=== PATIENT | female | born 1990 | race Hispanic/Latino ===

== ENCOUNTER 2018-02-24 22:20 | Inpatient (IN) | payer OTHER ==
--- NOTE | 2018-02-24 22:42 | ED PDOC ---
"HPI: Abdomen Time Seen by Provider: 02/24/18 22:41 Chief Complaint (Nursing): Abdominal Pain Chief Complaint (Provider): abd pain History Per: Patient Additional Complaint(s): 27-year-old female with no past medical history presents with severe abdominal pain that started earlier today. Patient states on Tuesday she developed slight stomach upset and vomited times one. Over the past 2 days she has noticed both constipation and watery, nonbloody diarrhea. 2 hours prior to arrival patient developed acute pain to abdomen prompting ED visit. She states her abdomen feels distended. Patient took Gas-X at home but this did not help so she came to ED. She rates abdominal pain as a 10/10 upon arrival. She denies nausea at this time, denies fever or chills. Past Medical History Reviewed: Historical Data, Nursing Documentation, Vital Signs Vital Signs: Last Vital Signs Temp 98.1 F 02/24/18 22:35 Pulse 88 02/25/18 04:46 Resp 16 02/25/18 04:46 BP 138/86 02/25/18 04:46 Pulse Ox 100 02/25/18 05:18 - Medical History PMH: No Chronic Diseases - Surgical History Surgical History: No Surg Hx - Family History Family History: States: No Known Family Hx - Living Arrangements Living Arrangements: With Friends/Others - Social History Current smoker - smoking cessation education provided: No Alcohol: Occasional Drugs: Denies - Home Medications Home Medications: Ambulatory Orders Medication Instructions Recorded No Known Home Med 02/25/18 - Allergies Allergies/Adverse Reactions: Allergies Allergy/AdvReac Type Severity Reaction Status Date / Time No Known Allergies Allergy Verified 06/15/16 15:56 Review of Systems ROS Statement: Except As Marked, All Systems Reviewed And Found Negative Constitutional: Negative for: Fever, Chills Cardiovascular: Negative for: Chest Pain Respiratory: Negative for: Cough, Shortness of Breath Gastrointestinal: Positive for: Abdominal Pain, Diarrhea, Constipation. Negative for: Nausea, Vomiting, Melena, Hematochezia, Hematemesis, Rectal Pain Genitourinary Female: Negative for: Dysuria, Vaginal Discharge, Vaginal Bleeding Physical Exam - Reviewed Nursing Documentation Reviewed: Yes Vital Signs Reviewed: Yes - Physical Exam Appears: Positive for: Well, Non-toxic, No Acute Distress Skin: Negative for: Rash Eye Exam: Positive for: Normal appearance Cardiovascular/Chest: Positive for: Regular Rate, Rhythm Respiratory: Positive for: Normal Breath Sounds Gastrointestinal/Abdominal: Positive for: Tenderness (Distention with diffuse abdominal tenderness and guarding) Back: Negative for: L CVA Tenderness, R CVA Tenderness Extremity: Positive for: Normal ROM Neurologic/Psych: Positive for: Alert, Oriented - Laboratory Results Result Diagrams: 02/24/18 23:45 02/24/18 23:45 Urine POC: Negative Urine dip results: Positive for: Blood (small). Negative for: Leukocyte Esterase, Nitrate, Ketones, Glucose, Bilirubin, Protein - ECG O2 Sat by Pulse Oximetry: 100 Pulse Ox Interpretation: Normal - Other Rad CT abd and pelvis with IV and oral contrast X-Ray: Read By Radiologist X-Ray Interpretation: see below Obstructive series X-Ray Interpretation: (+) air fluid levels Medical Decision Making Medical Decision Makin27 year old with severe diffuse abd pain Plan: Urine test Urine dip CBC CMP Lipase CT abd and pelvis with IV and oral contrast IVF IV reglan IV morphine Patient vomited a significant amount of undigested food while in ED right after reglan dose was given. 4 mg IV zofran ordered. Obstructive series shows air-fluid levels consistent with small bowel obstruction. resident in diagnostic radiology, Dr. Rey came to bedside to see patient and he inserted NG tube. Patient admitted to hospitalist service, Dr. Jacob. resident in diagnostic radiology discussed case with Surgery attending medical economics consultant, Dr. Dockery. K is low, IV K ordered by Dr. Rey. CT: FINDINGS: Lung bases: Unremarkable. No mass. No consolidation. ABDOMEN: Liver: Unremarkable. No mass. Gallbladder and bile ducts: Unremarkable. No calcified stones. No ductal dilation. Pancreas: Unremarkable. No mass. No ductal dilation. Spleen: Unremarkable. No splenomegaly. Adrenals: Unremarkable. No mass. Kidneys and ureters: Unremarkable. No solid mass. No hydronephrosis. Stomach and bowel: There is marked diffuse gas filled distention of the mid to distal small bowel and large bowel. The large bowel is dilated up to 8 cm in the cecum. No distal large bowel stricture or mass. There is no wall thickening or pericolonic stranding to suggest colitis. Appendix: No findings to suggest acute appendicitis. Normal appendix. PELVIS: Bladder: Unremarkable. No mass. Reproductive: Unremarkable as visualized. DESI NIÑO | Final Radiology Report CONFIDENTIALITY STATEMENT This report is intended only for use by the referring physician, and only in accordance with law. If you received this in error, call [phone]. Page 2 of 2 ABDOMEN and PELVIS: Intraperitoneal space: Unremarkable. No free air. No significant fluid collection. Bones/joints: No acute fracture. No dislocation. Soft tissues: Unremarkable. Vasculature: Unremarkable. No abdominal aortic aneurysm. Lymph nodes: Unremarkable. No enlarged lymph nodes. IMPRESSION: Marked diffuse gas filled distention of the small and large bowel suggesting severe ileus. No distal large bowel stricture or mass. Disposition - Clinical Impression Clinical Impression: Small bowel obstruction - Patient ED Disposition Is Patient to be Admitted: Yes - Disposition Disposition Time: 02:03 Condition: SERIOUS - Pt Status Changed To: Hospital Disposition Of: Inpatient - Admit Certification Admit to Inpatient:: After my assessment, the patient will require hospitalization for at least two midnights. This is because of the severity of symptoms shown, intensity of services needed, and/or the medical risk in this patient being treated as an outpatient. Results - Lab Results Lab Results: 02/24/18 02/24/18 23:45 23:45 WBC 5.5 D RBC 4.79 Hgb 14.4 Hct 42.4 MCV 88.4 MCH 30.0 MCHC 33.9 RDW 12.8 Plt Count 241 MPV 8.1 Neut % (Auto) 43.8 L Lymph % (Auto) 43.8 H [place] % (Auto) 9.7 Eos % (Auto) 1.7 Baso % (Auto) 1.0 Neut # (Auto) 2.4 Lymph # (Auto) 2.4 [place] # (Auto) 0.5 Eos # (Auto) 0.1 Baso # (Auto) 0.1 Sodium 143 Potassium 3.2 L Chloride 102 Carbon Dioxide 23 Anion Gap 21 H BUN 9 Creatinine 0.7 Est GFR ( Amer) > 60 Est GFR (Non-Af Amer) > 60 Random Glucose 108 H Calcium 9.4 Total Bilirubin 0.6 AST 38 H ALT 36 Alkaline Phosphatase 64 Total Protein 7.8 Albumin 4.2 Globulin 3.5 Albumin/Globulin Ratio 1.2 Lipase 75"
[2018-02-24] MEDS ORDERED: Sodium Chloride 0.9% 1,000 ML IV STA (23:16)
[2018-02-24] MEDS ORDERED: Iohexol 240 (50 ml) PO STA (23:17)
[2018-02-24 23:48] LABS: BASO # 0.1 K/uL (0.0-0.2); EOS # 0.1 K/uL (0.0-0.7); EOS % 1.7 % (0.0-4.0); HEMOGLOBIN 14.4 g/dL (12.0-16.0); LYMPH # 2.4 K/uL (1.0-4.3); LYMPH % 43.8 % (20.0-40.0); MEAN CELL VOLUME 88.4 fl (81.0-99.0); MEAN CORPUSCULAR HGB CONC 33.9 g/dL (33.0-37.0); MEAN PLATELET VOLUME 8.1 fl (7.2-11.7); MONO # 0.5 K/uL (0.0-0.8); MONO % 9.7 % (0.0-10.0); NEUT # 2.4 K/uL (1.8-7.0); NEUT % 43.8 % (50.0-75.0); NRBC % 0.1 % (0.0-0.0); RBC 4.79 Mil/uL (3.80-5.20); RED CELL DISTRIBUTION WIDTH 12.8 % (11.5-14.5); WHITE BLOOD COUNT 5.5 K/uL (4.8-10.8)
[2018-02-24 23:56] LABS: ALB/GLOB RATIO 1.2 (1.0-2.1); ALBUMIN 4.2 g/dL (3.5-5.0); ALT/SGPT 36 U/L (9-52); AST/SGOT 38 U/L (14-36); BLOOD UREA NITROGEN 9 mg/dl (7-17); CALCIUM 9.4 mg/dL (8.4-10.2); GFR AFRICAN-AMERICAN > 60; GFR NON-AFRICAN AMERICAN > 60; LIPASE 75 U/L (23-300)
--- NOTE | 2018-02-25 01:37 | CP.PCM.HP ---
History of Present Illness - History of Present Illness History of Present Illness: PMD: Viet Leone MD Chief complaint: Abdominal Pain The patient was seen and examined in the ED HPI: 27 years old female with no significant past medical hx comes with a 2 days hx constipation interchanging with diarrhea and stomach upset. Two hours prior to arriving at the ED she developed a Sharp, continuous, generalized abdominal pain, with variable severity, 10/10 on arriving to the ED. She referred that the abdomen felt distended but was not relieved with Gas X. No surgical hx Nor previous hx of obstruction.In the ED Obstructive series showed signs of Intestinal Obstruction and a NG tube was placed. PMH: Denies PSH: No surgical Hx SH: No substance abuse; Never smoked; Occasional Alcohol; Live with friends FH: States: No Known Family Hx Allergies: NKDA Medication: Reviewed Present on Admission - Present on Admission Any Indicators Present on Admission: No History of DVT/PE: No History of Uncontrolled Diabetes: No Urinary Catheter: No Decubitus Ulcer Present: No Review of Systems - Constitutional Constitutional: absent: Anorexia, Chills, Fever, Headache, Lethargy, Weakness - EENT Eyes: absent: Itchy Eyes, Photophobia, Requires Corrective Lenses, Sees Flashes Ears: absent: Decreased Hearing, Ear Discharge, Ear Pain, Tinnitus Nose/Mouth/Throat: absent: Epistaxis, Nasal Congestion, Nasal Trauma, Nose Pain , Sinus Pain, Sinus Pressure - Cardiovascular Cardiovascular: absent: Chest Pain, Dyspnea, Edema - Respiratory Respiratory: absent: Cough, Dyspnea, Wheezing, Stridor - Gastrointestinal Gastrointestinal: Abdominal Pain, Change in Bowel Habits, Constipation, Diarrhea , Nausea, Vomiting - Genitourinary Genitourinary: absent: Dysuria, Flank Pain, Hematuria, Urinary Hesitance, Voiding Freq/Small Amts - Musculoskeletal Musculoskeletal: absent: Arthralgias, Back Pain, Muscle Weakness - Integumentary Integumentary: absent: Pruritus, Rash, Skin Ulcer, Sores, Striae, Swelling - Neurological Neurological: absent: Confusion, Dizziness, Focal Weakness, Weakness - Psychiatric Psychiatric: Anxiety, Irritability. absent: Panic Attacks - Endocrine Endocrine: absent: Polydipsia, Polyphagia, Polyuria - Hematologic/Lymphatic Hematologic: absent: Easy Bleeding, Easy Bruising Past Patient History - Past Medical History & Family History Past Medical History?: No - Past Social History Smoking Status: Never Smoked Chewing Tobacco Use: No Cigar Use: No Alcohol: Occasional Drugs: Denies Home Situation {Lives}: With Family - CARDIAC Hx Cardiac Disorders: Yes Hx Heart Murmur: Yes - PULMONARY Hx Respiratory Disorders: No Hx Emphysema: No - NEUROLOGICAL Hx Neurological Disorder: No - HEENT Hx HEENT Problems: No - RENAL Hx Chronic Kidney Disease: No - ENDOCRINE/METABOLIC Hx Endocrine Disorders: No - HEMATOLOGICAL/ONCOLOGICAL Hx Blood Disorders: No - INTEGUMENTARY Hx Dermatological Problems: No - MUSCULOSKELETAL/RHEUMATOLOGICAL Hx Musculoskeletal Disorders: No - GASTROINTESTINAL Hx Constipation: Yes - GENITOURINARY/GYNECOLOGICAL Hx Genitourinary Disorders: No - PSYCHIATRIC Hx Psychophysiologic Disorder: No Hx Substance Use: No - SURGICAL HISTORY Hx Surgeries: No - ANESTHESIA Hx Anesthesia: No Meds Allergies/Adverse Reactions: Allergies Allergy/AdvReac Type Severity Reaction Status Date / Time No Known Allergies Allergy Verified 06/15/16 15:56 Physical Exam - Constitutional Appears: No Acute Distress - Head Exam Head Exam: ATRAUMATIC, NORMAL INSPECTION, NORMOCEPHALIC - Eye Exam Eye Exam: EOMI, Normal appearance, PERRL Pupil Exam: NORMAL ACCOMODATION, PERRL - ENT Exam ENT Exam: Mucous Membranes Moist, Normal Exam, Normal External Ear Exam, Normal Oropharynx - Neck Exam Neck exam: Positive for: Full Rom, Normal Inspection, Thyromegaly - Respiratory Exam Respiratory Exam: Clear to Auscultation Bilateral. absent: Rales, Rhonchi, Wheezes - Cardiovascular Exam Cardiovascular Exam: absent: +S1, +S2 - GI/Abdominal Exam Additional comments: Full, Firm, decreased bowel sounds Tympanic on percussion, Generalized tenderness, Mild guarding - Rectal Exam Rectal Exam: Deferred - Extremities Exam Extremities exam: Negative for: calf tenderness, full ROM - Back Exam Back exam: NORMAL INSPECTION. absent: CVA tenderness (L), CVA tenderness (R) - Neurological Exam Neurological exam: Alert, CN II-XII Intact, Normal Gait, Oriented x3, Reflexes Normal - Psychiatric Exam Psychiatric exam: Normal Affect, Normal Mood - Skin Skin Exam: Dry, Intact, Normal Color, Warm Results - Vital Signs Recent Vital Signs: Last Vital Signs Temp 98.1 F 02/24/18 22:35 Pulse 106 H 02/24/18 22:35 Resp 18 02/24/18 22:35 BP 154/93 H 02/24/18 22:35 Pulse Ox 100 02/25/18 01:32 - Labs Result Diagrams: 02/24/18 23:45 02/24/18 23:45 Labs: Laboratory Results - last 24 hr 02/24/18 02/24/18 23:45 23:45 WBC 5.5 D RBC 4.79 Hgb 14.4 Hct 42.4 MCV 88.4 MCH 30.0 MCHC 33.9 RDW 12.8 Plt Count 241 MPV 8.1 Neut % (Auto) 43.8 L Lymph % (Auto) 43.8 H [place] % (Auto) 9.7 Eos % (Auto) 1.7 Baso % (Auto) 1.0 Neut # (Auto) 2.4 Lymph # (Auto) 2.4 [place] # (Auto) 0.5 Eos # (Auto) 0.1 Baso # (Auto) 0.1 Sodium 143 Potassium 3.2 L Chloride 102 Carbon Dioxide 23 Anion Gap 21 H BUN 9 Creatinine 0.7 Est GFR ( Amer) > 60 Est GFR (Non-Af Amer) > 60 Random Glucose 108 H Calcium 9.4 Total Bilirubin 0.6 AST 38 H ALT 36 Alkaline Phosphatase 64 Total Protein 7.8 Albumin 4.2 Globulin 3.5 Albumin/Globulin Ratio 1.2 Lipase 75 - Imaging and Cardiology Chest x-ray Status: Image reviewed by me Additional comment: No infiltrate OBSTRUCTIVE SERIES Additional comment: Dilated loops of Small Intestine with air fluid levels Assessment & Plan - Assessment and Plan (Free Text) Assessment: #. SBO #. Abdominal Pain #: Hypokalemia Plan: 27 years old female with no significant past medical hx comes with a 2 days hx constipation interchanging with diarrhea, stomach upset with a Sharp, continuous , generalized abdominal pain, of variable severity, 10/10 on arriving to the ED. #. SBO - Consult Surgery Dr. Dockery - Follow CT abdomen/Pelvis - NPO - NG tube inserted by vice president medical affairs #. Abdominal Pain - Pain management #: Hypokalemia caused by the vomiting - Potassium repleted #. Stress ulcer prophylaxis with Pepcid #. DVT Prophylaxis with DVT #. Code Status: Full - Date & Time Date: 02/25/18 Time: 01:37
--- NOTE | 2018-02-25 01:38 | CP.PCM.CON ---
<CandidoIsatuPiter D - Last Filed: 02/25/18 01:33> History of Present Illness - History of Present Illness History of Present Illness: SURGERY CONSULT NOTE FOR DR. DOCKERY 27F presents with abdominal pain. Patient states pain started two days ago and has been slowly increasing in intensity. Pain is currently diffused, and is cyclical. She states pain is associated with nausea and vomiting. She recently vomited copious amount of undigested food in the ED. She states she has not had an appetite for the past 2 days. She has been having bowel movement but they are much smaller than usual. She states she feels like she needs to pass gas but she can not. She has never had this before. PMH: denies PSH: wisdom tooth extraction Social: denies tobacco abuse, admits social alcohol use, denies illicit drug use Allergies: NKDA Past Patient History - Past Social History Alcohol: Occasional Drugs: Denies - CARDIAC Hx Cardiac Disorders: Yes Hx Heart Murmur: Yes - PULMONARY Hx Respiratory Disorders: No - NEUROLOGICAL Hx Neurological Disorder: No - HEENT Hx HEENT Problems: No - RENAL Hx Chronic Kidney Disease: No - ENDOCRINE/METABOLIC Hx Endocrine Disorders: No - HEMATOLOGICAL/ONCOLOGICAL Hx Blood Disorders: No - INTEGUMENTARY Hx Dermatological Problems: No - MUSCULOSKELETAL/RHEUMATOLOGICAL Hx Musculoskeletal Disorders: No - GASTROINTESTINAL Hx Constipation: Yes - GENITOURINARY/GYNECOLOGICAL Hx Genitourinary Disorders: No - PSYCHIATRIC Hx Psychophysiologic Disorder: No Hx Substance Use: No - SURGICAL HISTORY Hx Surgeries: No - ANESTHESIA Hx Anesthesia: No Meds Allergies/Adverse Reactions: Allergies Allergy/AdvReac Type Severity Reaction Status Date / Time No Known Allergies Allergy Verified 06/15/16 15:56 - Medications Medications: Current Medications Hydromorphone HCl (Dilaudid) 1 mg IVP STAT STA Stop: 02/25/18 00:53 Physical Exam - Constitutional Appears: Non-toxic, No Acute Distress, Other Additional comments: uncomfortable due to pain - Respiratory Exam Respiratory Exam: Clear to Auscultation Bilateral, NORMAL BREATHING PATTERN - Cardiovascular Exam Cardiovascular Exam: REGULAR RHYTHM, +S1, +S2 - GI/Abdominal Exam GI & Abdominal Exam: Distended, Firm, Tenderness. absent: Guarding, Rebound, Rigid, Soft - Extremities Exam Extremities exam: Negative for: pedal edema, tenderness - Neurological Exam Neurological exam: Alert, Oriented x3 - Psychiatric Exam Psychiatric exam: Normal Affect, Normal Mood - Skin Skin Exam: Dry, Intact, Normal Color, Warm Results - Vital Signs Recent Vital Signs: Last Vital Signs Temp 98.1 F 02/24/18 22:35 Pulse 106 H 02/24/18 22:35 Resp 18 02/24/18 22:35 BP 154/93 H 02/24/18 22:35 Pulse Ox 100 02/25/18 01:32 - Labs Result Diagrams: 02/24/18 23:45 02/24/18 23:45 Labs: Laboratory Results - last 24 hr 02/24/18 02/24/18 23:45 23:45 WBC 5.5 D RBC 4.79 Hgb 14.4 Hct 42.4 MCV 88.4 MCH 30.0 MCHC 33.9 RDW 12.8 Plt Count 241 MPV 8.1 Neut % (Auto) 43.8 L Lymph % (Auto) 43.8 H [place] % (Auto) 9.7 Eos % (Auto) 1.7 Baso % (Auto) 1.0 Neut # (Auto) 2.4 Lymph # (Auto) 2.4 [place] # (Auto) 0.5 Eos # (Auto) 0.1 Baso # (Auto) 0.1 Sodium 143 Potassium 3.2 L Chloride 102 Carbon Dioxide 23 Anion Gap 21 H BUN 9 Creatinine 0.7 Est GFR ( Amer) > 60 Est GFR (Non-Af Amer) > 60 Random Glucose 108 H Calcium 9.4 Total Bilirubin 0.6 AST 38 H ALT 36 Alkaline Phosphatase 64 Total Protein 7.8 Albumin 4.2 Globulin 3.5 Albumin/Globulin Ratio 1.2 Lipase 75 Assessment & Plan - Assessment and Plan (Free Text) Assessment: 27F with abdominal pain likely 2/2 bowel obstruction Abd X-ray: air fluids levels Plan: NPO, IVF Pain control Nausea control NGT is placed- monitor output CT scan Abd/pelvis with contrast Further recs discuss with Dr. bayron Rey, PGY2 <Man Dockery - Last Filed: 02/25/18 15:33> History of Present Illness - History of Present Illness History of Present Illness: Patient was seen and examined at the bedside. Agree with resident's note above. States that she is passing flatus now, states that feels better and less bloated since the admission to the hospital. Meds - Medications Medications: Current Medications Acetaminophen (Tylenol 650 Mg Supp) 650 mg ME Q4 PRN PRN Reason: Pain, moderate (4-7) Last Admin: 02/25/18 08:22 Dose: 650 mg Dicyclomine HCl (Bentyl) 20 mg IM QID PRN PRN Reason: GI distress Famotidine (Pepcid) 20 mg IVP Q12 NARCISO Last Admin: 02/25/18 08:29 Dose: 20 mg Sodium Chloride (Sodium Chloride 0.9%) 1,000 mls @ 125 mls/hr IV .Q8H NARCISO Stop: 02/26/18 01:45 Last Admin: 02/25/18 13:44 Dose: 125 mls/hr Ketorolac Tromethamine (Toradol) 15 mg IVP Q6 PRN PRN Reason: Pain, severe (8-10) Last Admin: 02/25/18 13:43 Dose: 15 mg Ondansetron HCl (Zofran Inj) 4 mg IVP Q4 PRN PRN Reason: Nausea/Vomiting Last Admin: 02/25/18 04:06 Dose: 4 mg Ondansetron HCl (Zofran Odt) 4 mg PO Q8H PRN PRN Reason: Nausea/Vomiting Last Admin: 02/25/18 08:25 Dose: 4 mg Physical Exam - GI/Abdominal Exam Additional comments: soft, tender in the lower abdomen, very mildly distended, BS hypoactive, no rebound, no guarding - Rectal Exam Rectal Exam: Deferred Results - Vital Signs Recent Vital Signs: Last Vital Signs Temp 98 F 02/25/18 08:12 Pulse 84 02/25/18 08:12 Resp 18 02/25/18 08:12 BP 134/88 02/25/18 08:12 Pulse Ox 100 02/25/18 08:12 - Labs Result Diagrams: 02/25/18 07:30 02/25/18 07:30 Labs: Laboratory Results - last 24 hr 02/24/18 02/24/18 02/25/18 23:45 23:45 02:10 WBC 5.5 D RBC 4.79 Hgb 14.4 Hct 42.4 MCV 88.4 MCH 30.0 MCHC 33.9 RDW 12.8 Plt Count 241 MPV 8.1 Neut % (Auto) 43.8 L Lymph % (Auto) 43.8 H [place] % (Auto) 9.7 Eos % (Auto) 1.7 Baso % (Auto) 1.0 Neut # (Auto) 2.4 Lymph # (Auto) 2.4 [place] # (Auto) 0.5 Eos # (Auto) 0.1 Baso # (Auto) 0.1 PT 12.1 INR 1.1 APTT 27.7 Sodium 143 Potassium 3.2 L Chloride 102 Carbon Dioxide 23 Anion Gap 21 H BUN 9 Creatinine 0.7 Est GFR ( Amer) > 60 Est GFR (Non-Af Amer) > 60 Random Glucose 108 H Calcium 9.4 Total Bilirubin 0.6 AST 38 H ALT 36 Alkaline Phosphatase 64 Total Protein 7.8 Albumin 4.2 Globulin 3.5 Albumin/Globulin Ratio 1.2 Lipase 75 Urine Opiates Screen Urine Methadone Screen Ur Barbiturates Screen Ur Phencyclidine Scrn Ur Amphetamines Screen U Benzodiazepines Scrn U Oth Cocaine Metabols U Cannabinoids Screen 02/25/18 02/25/18 02/25/18 07:30 07:30 14:32 WBC 6.7 RBC 4.05 Hgb 12.2 D Hct 36.0 MCV 88.9 MCH 30.2 MCHC 33.9 RDW 12.4 Plt Count 191 MPV 8.4 Neut % (Auto) 82.4 H Lymph % (Auto) 11.4 L [place] % (Auto) 6.1 Eos % (Auto) 0.0 Baso % (Auto) 0.1 Neut # (Auto) 5.5 Lymph # (Auto) 0.8 L [place] # (Auto) 0.4 Eos # (Auto) 0.0 Baso # (Auto) 0.0 PT INR APTT Sodium 139 Potassium 3.9 Chloride 104 Carbon Dioxide 21 L Anion Gap 18 BUN 7 Creatinine 0.6 L Est GFR ( Amer) > 60 Est GFR (Non-Af Amer) > 60 Random Glucose 110 H Calcium 8.5 Total Bilirubin 0.5 AST 38 H ALT 41 Alkaline Phosphatase 53 Total Protein 6.4 Albumin 3.5 Globulin 3.0 Albumin/Globulin Ratio 1.2 Lipase Urine Opiates Screen Positive H Urine Methadone Screen Negative Ur Barbiturates Screen Negative Ur Phencyclidine Scrn Negative Ur Amphetamines Screen Negative U Benzodiazepines Scrn Negative U Oth Cocaine Metabols Negative U Cannabinoids Screen Negative - Imaging and Cardiology CT scan - abdomen Status: Image reviewed by me, Report reviewed by me Assessment & Plan - Assessment and Plan (Free Text) Assessment: 27 y.o. female with Ileus on the CT scan of abd/pelvis Plan: - Keep NPO - IV fluids - pain control - avoid narcotics - NG tube to wall suction - Out of bed and ambulate - repeat labs in am - Will follow
[2018-02-25] MEDS ORDERED: HYDROmorphone 0.5 mg/0.5 ml ISec ONE ×2 (01:52→04:43)
[2018-02-25] MEDS ORDERED: Iohexol 240 (50 ml) ONE (01:53)
[2018-02-25] MEDS: Sodium Chloride 0.9% 1,000 ML IV SCH ×4 (02:22→21:59)
[2018-02-25 02:34] LABS: INR 1.1 (0.9-1.2); PARTIAL THROMBOPLASTIN TIME 27.7 Seconds (25.6-37.1); PROTHROMBIN TIME 12.1 Seconds (9.8-13.1)
[2018-02-25] MEDS ORDERED: Potassium Chloride 20 mEq 100 ML ONE (02:44)
[2018-02-25] MEDS: Potassium Chloride 20 mEq 100 ML IVPB SCH ×2 (02:46→06:54)
[2018-02-25] MEDS ORDERED: Sodium Chloride 0.9% 100 ML ONE (03:49)
[2018-02-25] MEDS ORDERED: Iohexol 300 100 ML IJ ONE (03:49)
--- NOTE | 2018-02-25 05:19 | CT ---
EXAM: CT Abdomen and Pelvis With Intravenous Contrast CLINICAL HISTORY: 27 years old, female; Pain; Abdominal pain; Acute; Additional info: Severe abd pain, constipation TECHNIQUE: Axial computed tomography images of the abdomen and pelvis with intravenous contrast. All CT scans at this facility use one or more dose reduction techniques, viz.: automated exposure control; ma/kV adjustment per patient size (including targeted exams where dose is matched to indication; i.e. head); or iterative reconstruction technique. Coronal and sagittal reformatted images were created and reviewed. CONTRAST: 95 mL of omnipaque 300 administered intravenously. COMPARISON: No relevant prior studies available. FINDINGS: Lung bases: Unremarkable. No mass. No consolidation. ABDOMEN: Liver: Unremarkable. No mass. Gallbladder and bile ducts: Unremarkable. No calcified stones. No ductal dilation. Pancreas: Unremarkable. No mass. No ductal dilation. Spleen: Unremarkable. No splenomegaly. Adrenals: Unremarkable. No mass. Kidneys and ureters: Unremarkable. No solid mass. No hydronephrosis. Stomach and bowel: There is marked diffuse gas filled distention of the mid to distal small bowel and large bowel. The large bowel is dilated up to 8 cm in the cecum. No distal large bowel stricture or mass. There is no wall thickening or pericolonic stranding to suggest colitis. Appendix: No findings to suggest acute appendicitis. Normal appendix. PELVIS: Bladder: Unremarkable. No mass. Reproductive: Unremarkable as visualized. ABDOMEN and PELVIS: Intraperitoneal space: Unremarkable. No free air. No significant fluid collection. Bones/joints: No acute fracture. No dislocation. Soft tissues: Unremarkable. Vasculature: Unremarkable. No abdominal aortic aneurysm. Lymph nodes: Unremarkable. No enlarged lymph nodes. IMPRESSION: Marked diffuse gas filled distention of the small and large bowel suggesting severe ileus. No distal large bowel stricture or mass.
--- NOTE | 2018-02-25 09:04 | RAD ---
PROCEDURE: Radiographs of the chest and abdomen (obstructive series) HISTORY: severe abd pain COMPARISON: Chest radiograph dated 06/15/2016; no prior imaging of the abdomen. TECHNIQUE: AP radiograph of the chest, with upright and supine radiographs of the abdomen. FINDINGS: CHEST: Lungs: Clear. Cardiovascular: Normal size heart. No pulmonary vascular congestion. Pleura: No pleural fluid. No pneumothorax. Other findings: None. ABDOMEN AND PELVIS: Bowel: Gaseous distention of small and large bowel with gas seen in the rectum. Free air: None. Bones: Unremarkable. Other findings: None. IMPRESSION: Gaseous distention of small and large bowel with gas seen in the rectum suggesting ileus. No focal consolidation or pleural effusion.
[2018-02-25 09:09] LABS: BASO % 0.1 % (0.0-2.0); LYMPH # 0.8 K/uL (1.0-4.3); LYMPH % 11.4 % (20.0-40.0); MEAN CELL VOLUME 88.9 fl (81.0-99.0); MEAN CORPUSCULAR HEMOGLOBIN 30.2 pg (27.0-31.0); MEAN CORPUSCULAR HGB CONC 33.9 g/dL (33.0-37.0); MEAN PLATELET VOLUME 8.4 fl (7.2-11.7); MONO # 0.4 K/uL (0.0-0.8); MONO % 6.1 % (0.0-10.0); NEUT # 5.5 K/uL (1.8-7.0); NEUT % 82.4 % (50.0-75.0); NRBC % 0.2 % (0.0-0.0); RBC 4.05 Mil/uL (3.80-5.20); RED CELL DISTRIBUTION WIDTH 12.4 % (11.5-14.5); WHITE BLOOD COUNT 6.7 K/uL (4.8-10.8)
[2018-02-25 09:15] LABS: HEMOGLOBIN 12.2 g/dL (12.0-16.0)
[2018-02-25 09:19] LABS: ALB/GLOB RATIO 1.2 (1.0-2.1); ALBUMIN 3.5 g/dL (3.5-5.0); ALT/SGPT 41 U/L (9-52); AST/SGOT 38 U/L (14-36); BLOOD UREA NITROGEN 7 mg/dl (7-17); CALCIUM 8.5 mg/dL (8.4-10.2); GFR AFRICAN-AMERICAN > 60; GFR NON-AFRICAN AMERICAN > 60
--- NOTE | 2018-02-25 10:34 | RAD ---
PROCEDURE: Radiographs of the chest and abdomen (obstructive series) HISTORY: Follow up SBO vs Ileus COMPARISON: Chest and abdominal radiographs performed earlier the same day. TECHNIQUE: AP radiograph of the chest, with upright and supine radiographs of the abdomen. FINDINGS: CHEST: Lungs: Clear. Cardiovascular: Normal size heart. No pulmonary vascular congestion. Pleura: No pleural fluid. No pneumothorax. Other findings: New enteric tube with tip in stomach. ABDOMEN AND PELVIS: Bowel: Stable gaseous dilatation of large and small bowel. Free air: None. Bones: Unremarkable. Other findings: None. IMPRESSION: New enteric tube in satisfactory position. Stable gaseous distention of large and small bowel.
[2018-02-25 15:10] LABS: BARBITURATES, UR NEGATIVE (NEGATIVE); BENZODIAZEPINES, UR NEGATIVE (NEGATIVE); OPIATES, UR POSITIVE (NEGATIVE); PHENCYCLIDINE, UR NEGATIVE (NEGATIVE)
[2018-02-25] MEDS ORDERED: Chlorhexidine Gluconate 1 APPL/PKT TP ONE (22:36)
--- NOTE | 2018-02-26 01:42 | CP.PCM.CON ---
History of Present Illness - History of Present Illness History of Present Illness: 27 yo female with no past medical history admitted with abdominal pain and severe distention. Sx started 2 days earlier with severe constipationand increasing abdominal swelling. Had no prior surgery. Review of Systems - Constitutional Constitutional: absent: Chills - EENT Eyes: absent: Blurred Vision Ears: absent: Decreased Hearing Nose/Mouth/Throat: absent: Epistaxis - Cardiovascular Cardiovascular: absent: Chest Pain - Respiratory Respiratory: absent: Dyspnea - Gastrointestinal Gastrointestinal: As Per HPI - Genitourinary Genitourinary: absent: Change in Urinary Stream Past Patient History - Past Medical History & Family History Past Medical History?: No - Past Social History Smoking Status: Never Smoked - CARDIAC Hx Cardiac Disorders: Yes Hx Heart Murmur: Yes - PULMONARY Hx Respiratory Disorders: No Hx Emphysema: No - NEUROLOGICAL Hx Neurological Disorder: No - HEENT Hx HEENT Problems: No - RENAL Hx Chronic Kidney Disease: No - ENDOCRINE/METABOLIC Hx Endocrine Disorders: No - HEMATOLOGICAL/ONCOLOGICAL Hx Blood Disorders: No - INTEGUMENTARY Hx Dermatological Problems: No - MUSCULOSKELETAL/RHEUMATOLOGICAL Hx Musculoskeletal Disorders: No Hx Falls: No - GASTROINTESTINAL Hx Gastrointestinal Disorders: No Hx Constipation: Yes - GENITOURINARY/GYNECOLOGICAL Hx Genitourinary Disorders: No - PSYCHIATRIC Hx Psychophysiologic Disorder: No Hx Substance Use: No - SURGICAL HISTORY Hx Surgeries: No - ANESTHESIA Hx Anesthesia: No Hx Anesthesia Reactions: No Hx Malignant Hyperthermia: No Has any member of the family had a problem w/ anesthesia?: No Meds Allergies/Adverse Reactions: Allergies Allergy/AdvReac Type Severity Reaction Status Date / Time No Known Allergies Allergy Verified 06/15/16 15:56 - Medications Medications: Current Medications Acetaminophen (Tylenol 650 Mg Supp) 650 mg [place] Q4 PRN PRN Reason: Pain, moderate (4-7) Last Admin: 02/25/18 22:42 Dose: 650 mg Famotidine (Pepcid) 20 mg IVP Q12 NARCISO Last Admin: 02/25/18 21:44 Dose: 20 mg Sodium Chloride (Sodium Chloride 0.9%) 1,000 mls @ 125 mls/hr IV .Q8H NARCISO Stop: 02/26/18 01:45 Last Admin: 02/25/18 21:59 Dose: 125 mls/hr Ketorolac Tromethamine (Toradol) 15 mg IVP Q6 PRN PRN Reason: Pain, severe (8-10) Last Admin: 02/25/18 13:43 Dose: 15 mg Ondansetron HCl (Zofran Inj) 4 mg IVP Q4 PRN PRN Reason: Nausea/Vomiting Last Admin: 02/25/18 04:06 Dose: 4 mg Ondansetron HCl (Zofran Odt) 4 mg PO Q8H PRN PRN Reason: Nausea/Vomiting Last Admin: 02/25/18 08:25 Dose: 4 mg Physical Exam - Constitutional Appears: No Acute Distress - Head Exam Head Exam: NORMAL INSPECTION - Eye Exam Eye Exam: Normal appearance - ENT Exam ENT Exam: Mucous Membranes Moist - Neck Exam Neck exam: Positive for: Normal Inspection - Respiratory Exam Respiratory Exam: Clear to Auscultation Bilateral - Cardiovascular Exam Cardiovascular Exam: REGULAR RHYTHM, +S1, +S2 - GI/Abdominal Exam GI & Abdominal Exam: Distended, Hypoactive Bowel Sounds, Tenderness Additional comments: moderately distended with NG tube in place . Generalized tenderness. Rectal exam was negative , no stool present Results - Vital Signs Recent Vital Signs: Last Vital Signs Temp 97.7 F 02/26/18 00:05 Pulse 66 02/26/18 00:05 Resp 18 02/26/18 00:05 BP 122/79 02/26/18 00:05 Pulse Ox 98 02/26/18 00:05 - Labs Result Diagrams: 02/25/18 07:30 02/25/18 07:30 Labs: Laboratory Results - last 24 hr 02/25/18 02/25/18 02/25/18 02:10 07:30 07:30 WBC 6.7 RBC 4.05 Hgb 12.2 D Hct 36.0 MCV 88.9 MCH 30.2 MCHC 33.9 RDW 12.4 Plt Count 191 MPV 8.4 Neut % (Auto) 82.4 H Lymph % (Auto) 11.4 L [place] % (Auto) 6.1 Eos % (Auto) 0.0 Baso % (Auto) 0.1 Neut # (Auto) 5.5 Lymph # (Auto) 0.8 L [place] # (Auto) 0.4 Eos # (Auto) 0.0 Baso # (Auto) 0.0 PT 12.1 INR 1.1 APTT 27.7 Sodium 139 Potassium 3.9 Chloride 104 Carbon Dioxide 21 L Anion Gap 18 BUN 7 Creatinine 0.6 L Est GFR ( Amer) > 60 Est GFR (Non-Af Amer) > 60 Random Glucose 110 H Calcium 8.5 Total Bilirubin 0.5 AST 38 H ALT 41 Alkaline Phosphatase 53 Total Protein 6.4 Albumin 3.5 Globulin 3.0 Albumin/Globulin Ratio 1.2 Urine Opiates Screen Urine Methadone Screen Ur Barbiturates Screen Ur Phencyclidine Scrn Ur Amphetamines Screen U Benzodiazepines Scrn U Oth Cocaine Metabols U Cannabinoids Screen 02/25/18 14:32 WBC RBC Hgb Hct MCV MCH MCHC RDW Plt Count MPV Neut % (Auto) Lymph % (Auto) [place] % (Auto) Eos % (Auto) Baso % (Auto) Neut # (Auto) Lymph # (Auto) [place] # (Auto) Eos # (Auto) Baso # (Auto) PT INR APTT Sodium Potassium Chloride Carbon Dioxide Anion Gap BUN Creatinine Est GFR ( Amer) Est GFR (Non-Af Amer) Random Glucose Calcium Total Bilirubin AST ALT Alkaline Phosphatase Total Protein Albumin Globulin Albumin/Globulin Ratio Urine Opiates Screen Positive H Urine Methadone Screen Negative Ur Barbiturates Screen Negative Ur Phencyclidine Scrn Negative Ur Amphetamines Screen Negative U Benzodiazepines Scrn Negative U Oth Cocaine Metabols Negative U Cannabinoids Screen Negative - Imaging and Cardiology CT scan - abdomen Status: Report reviewed by me Additional comment: Accession No. : [id number] Patient Name / ID : SALINAS WEEKS E / [id number] Exam Date : 02/25/2018 03:56:23 ( Approved ) Study Comment : Sex / Age : F / 27Y Creator : JULIANE MARIO Dictator : Dough Panner : Auto Painter : JULIANE MARIO Approver2 : Report Date : 02/25/2018 05:19:00 My Comment : [facility] Division of Radiology [address] [place] [address] Tel. no. Patient Name: DESI NIÑO Pt. Address: [address] [place] [address] Rec #: [id number] [place] [address]: Milena WHITNEY, Beena Pt Order Location: [facility] : 1990 Female Age: 27 Order #: [id number] Reason for exam: severe abd pain, constipation CT Scan ABD PELVIS PO IV CONTRAST Exam Date: 02/24/18 This imaging exam was performed at [facility] EXAM: CT Abdomen and Pelvis With Intravenous Contrast CLINICAL HISTORY: 27 years old, female; Pain; Abdominal pain; Acute; Additional info: Severe abd pain, constipation TECHNIQUE: Axial computed tomography images of the abdomen and pelvis with intravenous contrast. All CT scans at this facility use one or more dose reduction techniques, viz.: automated exposure control; ma/kV adjustment per patient size (including targeted exams where dose is matched to indication; i.e. head); or iterative reconstruction technique. Coronal and sagittal reformatted images were created and reviewed. CONTRAST: 95 mL of omnipaque 300 administered intravenously. COMPARISON: No relevant prior studies available. FINDINGS: Lung bases: Unremarkable. No mass. No consolidation. ABDOMEN: Liver: Unremarkable. No mass. Gallbladder and bile ducts: Unremarkable. No calcified stones. No ductal dilation. Pancreas: Unremarkable. No mass. No ductal dilation. Spleen: Unremarkable. No splenomegaly. Adrenals: Unremarkable. No mass. Kidneys and ureters: Unremarkable. No solid mass. No hydronephrosis. Stomach and bowel: There is marked diffuse gas filled distention of the mid to distal small bowel and large bowel. The large bowel is dilated up to 8 cm in the cecum. No distal large bowel stricture or mass. There is no wall thickening or pericolonic stranding to suggest colitis. Appendix: No findings to suggest acute appendicitis. Normal appendix. PELVIS: Bladder: Unremarkable. No mass. Reproductive: Unremarkable as visualized. ABDOMEN and PELVIS: Intraperitoneal space: Unremarkable. No free air. No significant fluid collection. Bones/joints: No acute fracture. No dislocation. Soft tissues: Unremarkable. Vasculature: Unremarkable. No abdominal aortic aneurysm. Lymph nodes: Unremarkable. No enlarged lymph nodes. IMPRESSION: Marked diffuse gas filled distention of the small and large bowel suggesting severe ileus. No distal large bowel stricture or mass. Dictated By: Juliane Mario MD Dictated Date/Time: 02/25/18518 Signed By: Juliane Lopes MD Date Signed: [id number] Transcribed By: KEN Transcribe Date/Time : 02/25/18518 LAURA/BÁRBARA Assessment & Plan (1) Abdominal distention Assessment and Plan: Distention likely due to ileus. Etiology unknown. Continue NG drainage. Pyridostigmine 30 mg one dose given. Status: Acute
[2018-02-26] MEDS: Sodium Chloride 0.9% 1,000 ML IV SCH ×3 (05:49→17:35)
[2018-02-26 07:17] LABS: BASO % 0.6 % (0.0-2.0); EOS % 0.7 % (0.0-4.0); LYMPH # 1.8 K/uL (1.0-4.3); LYMPH % 42.3 % (20.0-40.0); MEAN CELL VOLUME 88.3 fl (81.0-99.0); MEAN CORPUSCULAR HEMOGLOBIN 30.7 pg (27.0-31.0); MEAN CORPUSCULAR HGB CONC 34.8 g/dL (33.0-37.0); MEAN PLATELET VOLUME 8.5 fl (7.2-11.7); MONO # 0.4 K/uL (0.0-0.8); MONO % 9.3 % (0.0-10.0); NEUT % 47.1 % (50.0-75.0); NRBC % 0.1 % (0.0-0.0); RBC 3.9 Mil/uL (3.80-5.20); RED CELL DISTRIBUTION WIDTH 12.4 % (11.5-14.5); WHITE BLOOD COUNT 4.3 K/uL (4.8-10.8)
[2018-02-26 07:28] LABS: BLOOD UREA NITROGEN 7 mg/dl (7-17); CALCIUM 8.6 mg/dL (8.4-10.2); GFR AFRICAN-AMERICAN > 60; GFR NON-AFRICAN AMERICAN > 60
--- NOTE | 2018-02-26 08:10 | CP.PCM.PN ---
<Chela Mckinney - Last Filed: 02/26/18 08:11> Subjective - Date & Time of Evaluation Date of Evaluation: 02/26/18 Time of Evaluation: 08:08 - Subjective Subjective: Surgery Patient seen and examined. No acute events. Received Neostigmine yesterday via NGT. NGT was clamped for 2 hrs and went back on suction. Report passing small amount of flatus. No BM. Pain and distension improved. Objective - Vital Signs/Intake and Output Vital Signs (last 24 hours): Temp Pulse Resp BP Pulse Ox 98 F 80 20 122/71 98 02/26/18 08:04 02/26/18 08:04 02/26/18 08:04 02/26/18 08:04 02/26/18 08:04 - Medications Medications: Current Medications Acetaminophen (Tylenol 650 Mg Supp) 650 mg [place] Q4 PRN PRN Reason: Pain, moderate (4-7) Last Admin: 02/26/18 03:22 Dose: 650 mg Famotidine (Pepcid) 20 mg IVP Q12 NARCISO Last Admin: 02/25/18 21:44 Dose: 20 mg Ketorolac Tromethamine (Toradol) 15 mg IVP Q6 PRN PRN Reason: Pain, severe (8-10) Last Admin: 02/25/18 13:43 Dose: 15 mg Ondansetron HCl (Zofran Inj) 4 mg IVP Q4 PRN PRN Reason: Nausea/Vomiting Last Admin: 02/25/18 04:06 Dose: 4 mg Ondansetron HCl (Zofran Odt) 4 mg PO Q8H PRN PRN Reason: Nausea/Vomiting Last Admin: 02/25/18 08:25 Dose: 4 mg - Labs Labs: 02/26/18 05:30 02/26/18 05:30 PT 12.1 Seconds (9.8-13.1) 02/25/18 02:10 INR 1.1 (0.9-1.2) 02/25/18 02:10 APTT 27.7 Seconds (25.6-37.1) 02/25/18 02:10 - Constitutional Appears: No Acute Distress - Head Exam Head Exam: ATRAUMATIC, NORMAL INSPECTION, NORMOCEPHALIC - Eye Exam Eye Exam: EOMI, Normal appearance, PERRL Pupil Exam: NORMAL ACCOMODATION, PERRL - ENT Exam ENT Exam: Mucous Membranes Moist, Normal Exam - Neck Exam Neck Exam: Full ROM, Normal Inspection. absent: Lymphadenopathy - Respiratory Exam Respiratory Exam: Clear to Ausculation Bilateral, NORMAL BREATHING PATTERN - Cardiovascular Exam Cardiovascular Exam: REGULAR RHYTHM, +S1, +S2. absent: Murmur - GI/Abdominal Exam GI & Abdominal Exam: Soft, Tenderness, Normal Bowel Sounds. absent: Distended, Firm, Guarding, Rigid Additional comments: diffuse TTP. - Exam Exam: NORMAL INSPECTION - Extremities Exam Extremities Exam: Full ROM, Normal Capillary Refill, Normal Inspection. absent : Joint Swelling, Pedal Edema - Back Exam Back Exam: NORMAL INSPECTION - Neurological Exam Neurological Exam: Alert, Awake, CN II-XII Intact, Normal Gait, Oriented x3 - Psychiatric Exam Psychiatric exam: Normal Affect, Normal Mood - Skin Skin Exam: Dry, Intact, Normal Color, Warm Assessment and Plan - Assessment and Plan (Free Text) Assessment: 27 y.o. female with Ileus on the CT scan of abd/pelvis NGT 500cc /24hrs bilious fluids CBC/BMP wnl Plan: - Keep NPO. May advance diet. - IV fluids - pain control - avoid narcotics - NG tube to wall suction: Possible clamp and DC today. - Out of bed and ambulate - Will follow Will NATALIE Shetty <Man Dockery - Last Filed: 02/26/18 17:14> Subjective - Date & Time of Evaluation Time of Evaluation: 16:40 - Subjective Subjective: Patient was seen and examined at the bedside. Agree with resident's note above. Objective - Vital Signs/Intake and Output Vital Signs (last 24 hours): Temp Pulse Resp BP Pulse Ox 98.3 F 69 20 122/73 99 02/26/18 16:09 02/26/18 16:09 02/26/18 16:09 02/26/18 16:09 02/26/18 16:09 Intake and Output: 02/26/18 02/26/18 06:59 18:59 Intake Total 1560 Output Total 200 Balance 1360 - Medications Medications: Current Medications Acetaminophen (Tylenol 650 Mg Supp) 650 mg [place] Q4 PRN PRN Reason: Pain, moderate (4-7) Last Admin: 02/26/18 03:22 Dose: 650 mg Artificial Tears (Artificial Tears) 1 drop OU Q6 PRN PRN Reason: Dry eyes Last Admin: 02/26/18 11:36 Dose: 1 drop Benzocaine/Menthol (Cepacol Sore Throat) 1 sierra PO QID PRN PRN Reason: Sore Throat Sodium Chloride (Sodium Chloride 0.9%) 1,000 mls @ 100 mls/hr IV .Q10H NARCISO Stop: 02/27/18 08:11 Last Admin: 02/26/18 09:18 Dose: 100 mls/hr Ketorolac Tromethamine (Toradol) 15 mg IVP Q6 PRN PRN Reason: Pain, severe (8-10) Last Admin: 02/26/18 11:27 Dose: 15 mg Ondansetron HCl (Zofran Inj) 4 mg IVP Q4 PRN PRN Reason: Nausea/Vomiting Last Admin: 02/25/18 04:06 Dose: 4 mg Ondansetron HCl (Zofran Odt) 4 mg PO Q8H PRN PRN Reason: Nausea/Vomiting Last Admin: 02/25/18 08:25 Dose: 4 mg - Labs Labs: 02/26/18 05:30 02/26/18 05:30 PT 12.1 Seconds (9.8-13.1) 02/25/18 02:10 INR 1.1 (0.9-1.2) 02/25/18 02:10 APTT 27.7 Seconds (25.6-37.1) 02/25/18 02:10 - GI/Abdominal Exam Additional comments: soft, much improved tenderness, ND, BS hypoactive, no rebound, no guarding Assessment and Plan - Assessment and Plan (Free Text) Plan: - removed NG tube - start sips of water - repeat labs in am - GI follow up - Will follow
--- NOTE | 2018-02-26 10:48 | CP.PCM.PN ---
Subjective - Date & Time of Evaluation Date of Evaluation: 02/26/18 Time of Evaluation: 10:30 - Subjective Subjective: No fever Pt still with abd pain, sl better abd distention better NGT in place about 450ml of bilious draiange noted in canister denies CP no SOB Objective - Vital Signs/Intake and Output Vital Signs (last 24 hours): Temp Pulse Resp BP Pulse Ox 98 F 80 20 122/71 98 02/26/18 08:04 02/26/18 08:04 02/26/18 08:04 02/26/18 08:04 02/26/18 08:04 Intake and Output: 02/26/18 02/26/18 06:59 18:59 Intake Total 1560 Output Total 200 Balance 1360 - Medications Medications: Current Medications Acetaminophen (Tylenol 650 Mg Supp) 650 mg [place] Q4 PRN PRN Reason: Pain, moderate (4-7) Last Admin: 02/26/18 03:22 Dose: 650 mg Artificial Tears (Artificial Tears) 1 drop OU Q6 PRN PRN Reason: Dry eyes Sodium Chloride (Sodium Chloride 0.9%) 1,000 mls @ 100 mls/hr IV .Q10H NARCISO Stop: 02/27/18 08:11 Last Admin: 02/26/18 09:18 Dose: 100 mls/hr Ketorolac Tromethamine (Toradol) 15 mg IVP Q6 PRN PRN Reason: Pain, severe (8-10) Last Admin: 02/25/18 13:43 Dose: 15 mg Ondansetron HCl (Zofran Inj) 4 mg IVP Q4 PRN PRN Reason: Nausea/Vomiting Last Admin: 02/25/18 04:06 Dose: 4 mg Ondansetron HCl (Zofran Odt) 4 mg PO Q8H PRN PRN Reason: Nausea/Vomiting Last Admin: 02/25/18 08:25 Dose: 4 mg Pyridostigmine [place] (Mestinon Tab) 30 mg PO ONCE ONE Stop: 02/26/18 10:42 - Labs Labs: 02/26/18 05:30 02/26/18 05:30 PT 12.1 Seconds (9.8-13.1) 02/25/18 02:10 INR 1.1 (0.9-1.2) 02/25/18 02:10 APTT 27.7 Seconds (25.6-37.1) 02/25/18 02:10 - Constitutional Appears: No Acute Distress - Head Exam Head Exam: ATRAUMATIC, NORMAL INSPECTION, NORMOCEPHALIC - Eye Exam Eye Exam: EOMI, Normal appearance, PERRL Pupil Exam: NORMAL ACCOMODATION - ENT Exam ENT Exam: Mucous Membranes Dry, Mucous Membranes Moist, Normal External Ear Exam - Neck Exam Neck Exam: Full ROM. absent: Meningismus - Respiratory Exam Respiratory Exam: NORMAL BREATHING PATTERN. absent: Rales, Wheezes, Respiratory Distress - Cardiovascular Exam Cardiovascular Exam: REGULAR RHYTHM, +S1, +S2 - GI/Abdominal Exam GI & Abdominal Exam: Distended, Soft, Tenderness, Hypoactive Bowel Sounds - Extremities Exam Extremities Exam: Full ROM, Normal Capillary Refill. absent: Calf Tenderness, Pedal Edema - Back Exam Back Exam: Full ROM, NORMAL INSPECTION. absent: CVA tenderness (L), CVA tenderness (R) - Neurological Exam Neurological Exam: Alert, Awake, CN II-XII Intact, Normal Gait, Oriented x3 Neuro motor strength exam: Left Upper Extremity: 5, Right Upper Extremity: 5, Left Lower Extremity: 5, Right Lower Extremity: 5 - Psychiatric Exam Psychiatric exam: Normal Affect, Normal Mood - Skin Skin Exam: Dry, Normal Color, Warm Assessment and Plan (1) Small bowel obstruction Status: Acute - Assessment and Plan (Free Text) Assessment: 27 y/o lady with no significant PMH, came in because of abd pain and vomiting. No history of abd surgery. CT of the abdomen : Marked diffuse gas filled distention of the small and large bowel suggesting severe ileus. No distal large bowel stricture or mass. 1. Partial SBO vs Ileus - pt is still with abd pain, less distended - had flatus yesterday but none so far today, no BM - rpt abd xray : no change - GI and Surgery consulted - NGT in place - keep NPO , cont IVF hydration - Pain mgt, minimize narcoctics - received Mest[place]on 2. DVT proph - SCD
--- NOTE | 2018-02-26 10:55 | CP.PCM.PN ---
Subjective - Date & Time of Evaluation Date of Evaluation: 02/26/18 Time of Evaluation: 10:53 - Subjective Subjective: Patient walking today .Passing gas and less abdominal pain. Objective - Vital Signs/Intake and Output Vital Signs (last 24 hours): Temp Pulse Resp BP Pulse Ox 98 F 80 20 122/71 98 02/26/18 08:04 02/26/18 08:04 02/26/18 08:04 02/26/18 08:04 02/26/18 08:04 Intake and Output: 02/26/18 02/26/18 06:59 18:59 Intake Total 1560 Output Total 200 Balance 1360 - Medications Medications: Current Medications Acetaminophen (Tylenol 650 Mg Supp) 650 mg [place] Q4 PRN PRN Reason: Pain, moderate (4-7) Last Admin: 02/26/18 03:22 Dose: 650 mg Artificial Tears (Artificial Tears) 1 drop OU Q6 PRN PRN Reason: Dry eyes Sodium Chloride (Sodium Chloride 0.9%) 1,000 mls @ 100 mls/hr IV .Q10H NARCISO Stop: 02/27/18 08:11 Last Admin: 02/26/18 09:18 Dose: 100 mls/hr Ketorolac Tromethamine (Toradol) 15 mg IVP Q6 PRN PRN Reason: Pain, severe (8-10) Last Admin: 02/25/18 13:43 Dose: 15 mg Ondansetron HCl (Zofran Inj) 4 mg IVP Q4 PRN PRN Reason: Nausea/Vomiting Last Admin: 02/25/18 04:06 Dose: 4 mg Ondansetron HCl (Zofran Odt) 4 mg PO Q8H PRN PRN Reason: Nausea/Vomiting Last Admin: 02/25/18 08:25 Dose: 4 mg - Labs Labs: 02/26/18 05:30 02/26/18 05:30 PT 12.1 Seconds (9.8-13.1) 02/25/18 02:10 INR 1.1 (0.9-1.2) 02/25/18 02:10 APTT 27.7 Seconds (25.6-37.1) 02/25/18 02:10 - Head Exam Head Exam: ATRAUMATIC - Eye Exam Eye Exam: Normal appearance - ENT Exam ENT Exam: Normal Exam - Neck Exam Neck Exam: Full ROM - Respiratory Exam Respiratory Exam: Clear to Ausculation Bilateral - GI/Abdominal Exam GI & Abdominal Exam: Soft, Tenderness, Normal Bowel Sounds Additional comments: Bowel sounds improved and tenderness much less than yesterday - Extremities Exam Extremities Exam: Normal Inspection Assessment and Plan (1) Abdominal distention Assessment & Plan: Ileus improving. Will give one more dose pyridostigmine. If NG drainage continues to be miniscule may d/c NG tube. Status: Acute
[2018-02-26] MEDS: Artificial Tears Opht Soln OU PRN ×2 (11:36→22:18)
[2018-02-26] MEDS: Benzocaine/Menthol (Cepacol) Lozenge PO PRN (17:34)
[2018-02-27] MEDS: Sodium Chloride 0.9% 1,000 ML IV SCH (04:15)
[2018-02-27 06:55] LABS: HEMOGLOBIN 12.7 g/dL (12.0-16.0); MEAN CELL VOLUME 88.3 fl (81.0-99.0); MEAN CORPUSCULAR HEMOGLOBIN 30.9 pg (27.0-31.0); RBC 4.1 Mil/uL (3.80-5.20); RED CELL DISTRIBUTION WIDTH 12.3 % (11.5-14.5); WHITE BLOOD COUNT 6.1 K/uL (4.8-10.8)
[2018-02-27 07:46] LABS: BLOOD UREA NITROGEN 12 mg/dl (7-17); CALCIUM 8.7 mg/dL (8.4-10.2); GFR AFRICAN-AMERICAN > 60; GFR NON-AFRICAN AMERICAN > 60
[2018-02-27 08:24] VITALS: RESP 18
--- NOTE | 2018-02-27 09:05 | CP.PCM.PN ---
<Piter Rey - Last Filed: 02/27/18 08:58> Subjective - Date & Time of Evaluation Date of Evaluation: 02/27/18 Time of Evaluation: 08:58 - Subjective Subjective: SURGERY NOTE FOR DR. DOCKERY 27F seen and examined at bedside. Patient complain of abdominal pain, denies nausea, vomiting. Denies flatus. Abdominal distension has resolved. Objective - Vital Signs/Intake and Output Vital Signs (last 24 hours): Temp Pulse Resp BP Pulse Ox 98.2 F 57 L 18 118/76 99 02/27/18 08:23 02/27/18 08:23 02/27/18 08:23 02/27/18 08:23 02/27/18 08:23 - Medications Medications: Current Medications Acetaminophen (Tylenol 650 Mg Supp) 650 mg [place] Q4 PRN PRN Reason: Pain, moderate (4-7) Last Admin: 02/26/18 03:22 Dose: 650 mg Artificial Tears (Artificial Tears) 1 drop OU Q6 PRN PRN Reason: Dry eyes Last Admin: 02/26/18 22:18 Dose: 1 drop Benzocaine/Menthol (Cepacol Sore Throat) 1 sierra PO QID PRN PRN Reason: Sore Throat Last Admin: 02/26/18 17:34 Dose: 1 sierra Ketorolac Tromethamine (Toradol) 15 mg IVP Q6 PRN PRN Reason: Pain, severe (8-10) Last Admin: 02/26/18 11:27 Dose: 15 mg Ondansetron HCl (Zofran Inj) 4 mg IVP Q4 PRN PRN Reason: Nausea/Vomiting Last Admin: 02/25/18 04:06 Dose: 4 mg Ondansetron HCl (Zofran Odt) 4 mg PO Q8H PRN PRN Reason: Nausea/Vomiting Last Admin: 02/25/18 08:25 Dose: 4 mg Pyridostigmine [place] (Mestinon Tab) 30 mg PO TID NARCISO - Labs Labs: 02/27/18 05:25 02/27/18 05:25 PT 12.1 Seconds (9.8-13.1) 02/25/18 02:10 INR 1.1 (0.9-1.2) 02/25/18 02:10 APTT 27.7 Seconds (25.6-37.1) 02/25/18 02:10 - Constitutional Appears: Non-toxic, No Acute Distress - Respiratory Exam Respiratory Exam: Clear to Ausculation Bilateral, NORMAL BREATHING PATTERN - Cardiovascular Exam Cardiovascular Exam: REGULAR RHYTHM, +S1, +S2 - GI/Abdominal Exam GI & Abdominal Exam: Soft, Tenderness. absent: Distended, Firm, Guarding, Rigid , Rebound - Neurological Exam Neurological Exam: Alert, Awake - Skin Skin Exam: Dry, Intact, Normal Color, Warm Assessment and Plan - Assessment and Plan (Free Text) Assessment: 27F ileus, resolving Plan: - Pain control - advanced diet to clear liquid diet - monitor for bowel function Discussed with Dr. bayron Rey, PGY2 <Man Dockery - Last Filed: 02/27/18 13:29> Subjective - Date & Time of Evaluation Time of Evaluation: 11:15 - Subjective Subjective: Patient was seen and examined at the bedside. Agree with resident's note above. Objective - Vital Signs/Intake and Output Vital Signs (last 24 hours): Temp Pulse Resp BP Pulse Ox 98.2 F 57 L 18 118/76 99 02/27/18 08:23 02/27/18 08:23 02/27/18 08:23 02/27/18 08:23 02/27/18 08:23 - Medications Medications: Current Medications Acetaminophen (Tylenol 650 Mg Supp) 650 mg [place] Q4 PRN PRN Reason: Pain, moderate (4-7) Last Admin: 02/26/18 03:22 Dose: 650 mg Artificial Tears (Artificial Tears) 1 drop OU Q6 PRN PRN Reason: Dry eyes Last Admin: 02/27/18 09:20 Dose: 1 drop Benzocaine/Menthol (Cepacol Sore Throat) 1 sierra PO QID PRN PRN Reason: Sore Throat Last Admin: 02/27/18 12:53 Dose: 1 sierra Ketorolac Tromethamine (Toradol) 15 mg IVP Q6 PRN PRN Reason: Pain, severe (8-10) Last Admin: 02/26/18 11:27 Dose: 15 mg Ondansetron HCl (Zofran Inj) 4 mg IVP Q4 PRN PRN Reason: Nausea/Vomiting Last Admin: 02/25/18 04:06 Dose: 4 mg Ondansetron HCl (Zofran Odt) 4 mg PO Q8H PRN PRN Reason: Nausea/Vomiting Last Admin: 02/25/18 08:25 Dose: 4 mg Pyridostigmine [place] (Mestinon Tab) 30 mg PO TID NARCISO Last Admin: 02/27/18 09:49 Dose: 30 mg - Labs Labs: 02/27/18 05:25 02/27/18 05:25 PT 12.1 Seconds (9.8-13.1) 02/25/18 02:10 INR 1.1 (0.9-1.2) 02/25/18 02:10 APTT 27.7 Seconds (25.6-37.1) 02/25/18 02:10
[2018-02-27] MEDS: Artificial Tears Opht Soln OU PRN ×2 (09:20→17:09)
--- NOTE | 2018-02-27 12:42 | CP.PCM.PN ---
Subjective - Date & Time of Evaluation Date of Evaluation: 02/27/18 Time of Evaluation: 12:42 - Subjective Subjective: patient slowly improving, ambulating around hallway without difficulty or pain hd stable nad small amount of flatus no BM Objective - Vital Signs/Intake and Output Vital Signs (last 24 hours): Temp Pulse Resp BP Pulse Ox 98.2 F 57 L 18 118/76 99 02/27/18 08:23 02/27/18 08:23 02/27/18 08:23 02/27/18 08:23 02/27/18 08:23 - Medications Medications: Current Medications Acetaminophen (Tylenol 650 Mg Supp) 650 mg [place] Q4 PRN PRN Reason: Pain, moderate (4-7) Last Admin: 02/26/18 03:22 Dose: 650 mg Artificial Tears (Artificial Tears) 1 drop OU Q6 PRN PRN Reason: Dry eyes Last Admin: 02/27/18 09:20 Dose: 1 drop Benzocaine/Menthol (Cepacol Sore Throat) 1 sierra PO QID PRN PRN Reason: Sore Throat Last Admin: 02/26/18 17:34 Dose: 1 sierra Ketorolac Tromethamine (Toradol) 15 mg IVP Q6 PRN PRN Reason: Pain, severe (8-10) Last Admin: 02/26/18 11:27 Dose: 15 mg Ondansetron HCl (Zofran Inj) 4 mg IVP Q4 PRN PRN Reason: Nausea/Vomiting Last Admin: 02/25/18 04:06 Dose: 4 mg Ondansetron HCl (Zofran Odt) 4 mg PO Q8H PRN PRN Reason: Nausea/Vomiting Last Admin: 02/25/18 08:25 Dose: 4 mg Pyridostigmine [place] (Mestinon Tab) 30 mg PO TID NARCISO Last Admin: 02/27/18 09:49 Dose: 30 mg - Labs Labs: 02/27/18 05:25 02/27/18 05:25 PT 12.1 Seconds (9.8-13.1) 02/25/18 02:10 INR 1.1 (0.9-1.2) 02/25/18 02:10 APTT 27.7 Seconds (25.6-37.1) 02/25/18 02:10 - Additional Findings Additional findings: General: awake, alert HEENT: NCAT, PERRL, EOMI HEART: RRR, S1, S2 no MRG LUNG: CTAB, no WRR ABD: soft, NT, ND, no mass, no HSM EXT: warm, well perfused NEURO: awake, alert SKIN: warm, dry PSYCH: normal mood, normal affect Assessment and Plan - Assessment and Plan (Free Text) Plan: 27 y/o lady with no significant PMH, came in because of abd pain and vomiting. No history of abd surgery. CT of the abdomen : Marked diffuse gas filled distention of the small and large bowel suggesting severe ileus. No distal large bowel stricture or mass. 1. Partial SBO vs Ileus - no pain - no flatus yesterday, small amount today - rpt abd xray : no change - GI and Surgery consulted - NGT in place - keep NPO , cont IVF hydration - Pain mgt, minimize narcoctics - received Mestinon 2. DVT proph - SCD
[2018-02-27] MEDS: Benzocaine/Menthol (Cepacol) Lozenge PO PRN (12:53)
--- NOTE | 2018-02-27 12:54 | CP.PCM.PN ---
Subjective - Date & Time of Evaluation Date of Evaluation: 02/27/18 Time of Evaluation: 12:52 - Subjective Subjective: Patient seen ambulating in hallway. Feeling less pain/distention Objective - Vital Signs/Intake and Output Vital Signs (last 24 hours): Temp Pulse Resp BP Pulse Ox 98.2 F 57 L 18 118/76 99 02/27/18 08:23 02/27/18 08:23 02/27/18 08:23 02/27/18 08:23 02/27/18 08:23 - Medications Medications: Current Medications Acetaminophen (Tylenol 650 Mg Supp) 650 mg [place] Q4 PRN PRN Reason: Pain, moderate (4-7) Last Admin: 02/26/18 03:22 Dose: 650 mg Artificial Tears (Artificial Tears) 1 drop OU Q6 PRN PRN Reason: Dry eyes Last Admin: 02/27/18 09:20 Dose: 1 drop Benzocaine/Menthol (Cepacol Sore Throat) 1 sierra PO QID PRN PRN Reason: Sore Throat Last Admin: 02/26/18 17:34 Dose: 1 sierra Ketorolac Tromethamine (Toradol) 15 mg IVP Q6 PRN PRN Reason: Pain, severe (8-10) Last Admin: 02/26/18 11:27 Dose: 15 mg Ondansetron HCl (Zofran Inj) 4 mg IVP Q4 PRN PRN Reason: Nausea/Vomiting Last Admin: 02/25/18 04:06 Dose: 4 mg Ondansetron HCl (Zofran Odt) 4 mg PO Q8H PRN PRN Reason: Nausea/Vomiting Last Admin: 02/25/18 08:25 Dose: 4 mg Pyridostigmine [place] (Mestinon Tab) 30 mg PO TID NARCISO Last Admin: 02/27/18 09:49 Dose: 30 mg - Labs Labs: 02/27/18 05:25 02/27/18 05:25 PT 12.1 Seconds (9.8-13.1) 02/25/18 02:10 INR 1.1 (0.9-1.2) 02/25/18 02:10 APTT 27.7 Seconds (25.6-37.1) 02/25/18 02:10 - Head Exam Head Exam: ATRAUMATIC - Eye Exam Eye Exam: Normal appearance - ENT Exam ENT Exam: Normal Exam - Neck Exam Neck Exam: Full ROM - Respiratory Exam Respiratory Exam: Clear to Ausculation Bilateral - Cardiovascular Exam Cardiovascular Exam: REGULAR RHYTHM - GI/Abdominal Exam GI & Abdominal Exam: Soft. absent: Tenderness Additional comments: Bowel sounds normal Assessment and Plan (1) Abdominal distention Assessment & Plan: Continues to improve clinically. Diet advanced to full liquids. Will give pyridostigmine 30 mg TID today. Status: Acute
[2018-02-28 00:44] VITALS: O2SAT 98
--- NOTE | 2018-02-28 07:42 | CP.PCM.PN ---
Subjective - Date & Time of Evaluation Date of Evaluation: 02/28/18 Time of Evaluation: 07:00 - Subjective Subjective: General Surgery Note- Dr. Dockery 27F seen and examined at bedside. Patient complain of abdominal pain, however improved. Denies nausea, vomiting. Denies flatus. Objective - Vital Signs/Intake and Output Vital Signs (last 24 hours): Temp Pulse Resp BP Pulse Ox 98.3 F 70 18 119/72 98 02/28/18 01:00 02/28/18 01:00 02/28/18 01:00 02/28/18 01:00 02/28/18 01:00 - Medications Medications: Current Medications Acetaminophen (Tylenol 650 Mg Supp) 650 mg [place] Q4 PRN PRN Reason: Pain, moderate (4-7) Last Admin: 02/26/18 03:22 Dose: 650 mg Artificial Tears (Artificial Tears) 1 drop OU Q6 PRN PRN Reason: Dry eyes Last Admin: 02/27/18 17:09 Dose: 1 drop Benzocaine/Menthol (Cepacol Sore Throat) 1 sierra PO QID PRN PRN Reason: Sore Throat Last Admin: 02/27/18 12:53 Dose: 1 sierra Ketorolac Tromethamine (Toradol) 15 mg IVP Q6 PRN PRN Reason: Pain, severe (8-10) Last Admin: 02/26/18 11:27 Dose: 15 mg Ondansetron HCl (Zofran Inj) 4 mg IVP Q4 PRN PRN Reason: Nausea/Vomiting Last Admin: 02/25/18 04:06 Dose: 4 mg Ondansetron HCl (Zofran Odt) 4 mg PO Q8H PRN PRN Reason: Nausea/Vomiting Last Admin: 02/25/18 08:25 Dose: 4 mg Pyridostigmine [place] (Mestinon Tab) 30 mg PO TID NARCISO Last Admin: 02/27/18 18:08 Dose: 30 mg - Labs Labs: 02/27/18 05:25 02/27/18 05:25 PT 12.1 Seconds (9.8-13.1) 02/25/18 02:10 INR 1.1 (0.9-1.2) 02/25/18 02:10 APTT 27.7 Seconds (25.6-37.1) 02/25/18 02:10 - Constitutional Appears: Well, Non-toxic, No Acute Distress - Head Exam Head Exam: NORMOCEPHALIC - ENT Exam ENT Exam: Mucous Membranes Moist - Respiratory Exam Respiratory Exam: NORMAL BREATHING PATTERN - Cardiovascular Exam Cardiovascular Exam: +S1, +S2 - GI/Abdominal Exam Additional comments: Soft, Tenderness. No abdominal distension noted. absent: Distended, Firm, Guarding, Rigid, Rebound - Neurological Exam Neurological Exam: Alert, Awake, Oriented x3 - Psychiatric Exam Psychiatric exam: Normal Affect, Normal Mood Assessment and Plan - Assessment and Plan (Free Text) Assessment: 27F ileus, resolving Plan: - Pain control - Liquid diet, ADAT - monitor for bowel function - Further recs per Dr. Sarkis Gray DPM PGY-1
[2018-02-28 08:20] VITALS: BP 122/81; PULSE 63; TEMP 98.1
[2018-02-28] MEDS: Benzocaine/Menthol (Cepacol) Lozenge PO PRN (09:04)
[2018-02-28] MEDS: Artificial Tears Opht Soln OU PRN (09:04)
--- NOTE | 2018-02-28 10:03 | CP.PCM.PN ---
Subjective - Date & Time of Evaluation Date of Evaluation: 02/28/18 Time of Evaluation: 09:59 - Subjective Subjective: Patient now having bowel movements. Tolerating liquids and applesauce. Objective - Vital Signs/Intake and Output Vital Signs (last 24 hours): Temp Pulse Resp BP Pulse Ox 98.1 F 63 18 122/81 98 02/28/18 08:20 02/28/18 08:20 02/28/18 08:20 02/28/18 08:20 02/28/18 08:20 - Medications Medications: Current Medications Acetaminophen (Tylenol 650 Mg Supp) 650 mg [place] Q4 PRN PRN Reason: Pain, moderate (4-7) Last Admin: 02/26/18 03:22 Dose: 650 mg Artificial Tears (Artificial Tears) 1 drop OU Q6 PRN PRN Reason: Dry eyes Last Admin: 02/28/18 09:04 Dose: 1 drop Benzocaine/Menthol (Cepacol Sore Throat) 1 sierra PO QID PRN PRN Reason: Sore Throat Last Admin: 02/28/18 09:04 Dose: 1 sierra Ketorolac Tromethamine (Toradol) 15 mg IVP Q6 PRN PRN Reason: Pain, severe (8-10) Last Admin: 02/26/18 11:27 Dose: 15 mg Ondansetron HCl (Zofran Inj) 4 mg IVP Q4 PRN PRN Reason: Nausea/Vomiting Last Admin: 02/25/18 04:06 Dose: 4 mg Ondansetron HCl (Zofran Odt) 4 mg PO Q8H PRN PRN Reason: Nausea/Vomiting Last Admin: 02/25/18 08:25 Dose: 4 mg Pyridostigmine [place] (Mestinon Tab) 30 mg PO TID NARCISO Last Admin: 02/28/18 09:04 Dose: 30 mg - Labs Labs: 02/27/18 05:25 02/27/18 05:25 PT 12.1 Seconds (9.8-13.1) 02/25/18 02:10 INR 1.1 (0.9-1.2) 02/25/18 02:10 APTT 27.7 Seconds (25.6-37.1) 02/25/18 02:10 - Head Exam Head Exam: ATRAUMATIC - ENT Exam ENT Exam: Mucous Membranes Moist - Neck Exam Neck Exam: Full ROM - Respiratory Exam Respiratory Exam: NORMAL BREATHING PATTERN - Cardiovascular Exam Cardiovascular Exam: +S1, +S2 - GI/Abdominal Exam GI & Abdominal Exam: Soft, Tenderness Additional comments: mild generallized tenderness Assessment and Plan (1) Abdominal distention Assessment & Plan: Continues to improve. Diet being advanced and if tolerated may go home off medications. Status: Acute
--- NOTE | 2018-02-28 11:37 | CP.PCM.DIS ---
Provider - Provider Date of Admission: 02/25/18 01:45 Attending physician: Poli Jacob Time Spent in preparation of Discharge (in minutes): 30 Hospital Course - Lab Results Lab Results: Most Recent Lab Values WBC 6.1 K/uL (4.8-10.8) 02/27/18 05:25 RBC 4.10 Mil/uL (3.80-5.20) 02/27/18 05:25 Hgb 12.7 g/dL (12.0-16.0) 02/27/18 05:25 Hct 36.2 % (34.0-47.0) 02/27/18 05:25 MCV 88.3 fl (81.0-99.0) 02/27/18 05:25 MCH 30.9 pg (27.0-31.0) 02/27/18 05:25 MCHC 35.0 g/dL (33.0-37.0) 02/27/18 05:25 RDW 12.3 % (11.5-14.5) 02/27/18 05:25 Plt Count 211 K/uL (130-400) 02/27/18 05:25 MPV 8.5 fl (7.2-11.7) 02/26/18 05:30 Neut % (Auto) 47.1 % (50.0-75.0) L 02/26/18 05:30 Lymph % (Auto) 42.3 % (20.0-40.0) H 02/26/18 05:30 [place] % (Auto) 9.3 % (0.0-10.0) 02/26/18 05:30 Eos % (Auto) 0.7 % (0.0-4.0) 02/26/18 05:30 Baso % (Auto) 0.6 % (0.0-2.0) 02/26/18 05:30 Neut # (Auto) 2.0 K/uL (1.8-7.0) 02/26/18 05:30 Lymph # (Auto) 1.8 K/uL (1.0-4.3) 02/26/18 05:30 [place] # (Auto) 0.4 K/uL (0.0-0.8) 02/26/18 05:30 Eos # (Auto) 0.0 K/uL (0.0-0.7) 02/26/18 05:30 Baso # (Auto) 0.0 K/uL (0.0-0.2) 02/26/18 05:30 PT 12.1 Seconds (9.8-13.1) 02/25/18 02:10 INR 1.1 (0.9-1.2) 02/25/18 02:10 APTT 27.7 Seconds (25.6-37.1) 02/25/18 02:10 Sodium 143 mmol/l (132-148) 02/27/18 05:25 Potassium 4.1 MMOL/L (3.6-5.0) 02/27/18 05:25 Chloride 105 mmol/L (98-107) 02/27/18 05:25 Carbon Dioxide 19 mmol/L (22-30) L 02/27/18 05:25 Anion Gap 23 (10-20) H 02/27/18 05:25 BUN 12 mg/dl (7-17) 02/27/18 05:25 Creatinine 0.7 mg/dl (0.7-1.2) 02/27/18 05:25 Est GFR ( Amer) > 60 02/27/18 05:25 Est GFR (Non-Af Amer) > 60 02/27/18 05:25 Random Glucose 56 mg/dL (65-105) L 02/27/18 05:25 Calcium 8.7 mg/dL (8.4-10.2) 02/27/18 05:25 Phosphorus 3.2 mg/dl (2.5-4.5) 02/26/18 05:30 Magnesium 1.7 MG/DL (1.6-2.3) 02/26/18 05:30 Total Bilirubin 0.5 mg/dl (0.2-1.3) 02/25/18 07:30 AST 38 U/L (14-36) H 02/25/18 07:30 ALT 41 U/L (9-52) 02/25/18 07:30 Alkaline Phosphatase 53 U/L (38-126) 02/25/18 07:30 Total Protein 6.4 G/DL (6.3-8.2) 02/25/18 07:30 Albumin 3.5 g/dL (3.5-5.0) 02/25/18 07:30 Globulin 3.0 gm/dL (2.2-3.9) 02/25/18 07:30 Albumin/Globulin Ratio 1.2 (1.0-2.1) 02/25/18 07:30 Lipase 75 U/L (23-300) 02/24/18 23:45 Urine Opiates Screen Positive (NEGATIVE) H 02/25/18 14:32 Urine Methadone Screen Negative (NEGATIVE) 02/25/18 14:32 Ur Barbiturates Screen Negative (NEGATIVE) 02/25/18 14:32 Ur Phencyclidine Scrn Negative (NEGATIVE) 02/25/18 14:32 Ur Amphetamines Screen Negative (NEGATIVE) 02/25/18 14:32 U Benzodiazepines Scrn Negative (NEGATIVE) 02/25/18 14:32 U Oth Cocaine Metabols Negative (NEGATIVE) 02/25/18 14:32 U Cannabinoids Screen Negative (NEGATIVE) 02/25/18 14:32 - Hospital Course Hospital Course: 27 y/o lady with no significant PMH, came in because of abd pain and vomiting. No history of abd surgery. CT of the abdomen : Marked diffuse gas filled distention of the small and large bowel suggesting severe ileus. No distal large bowel stricture or mass. 1. Ileus - BM yesterday and tolerated regular diet today after being advanced liquid to soft. - rpt abd xray : no change - GI and Surgery consulted - received Mestinon - tolerated diet, stable for discharge home, follow up with PCP and surgery in one week. 2. DVT proph - SCD Discharge Exam - Head Exam Additional comments: General: awake, alert HEENT: NCAT, PERRL, EOMI HEART: RRR, S1, S2 no MRG LUNG: CTAB, no WRR ABD: soft, NT, ND, no mass, no HSM EXT: warm, well perfused NEURO: awake, alert SKIN: warm, dry PSYCH: normal mood, normal affect Discharge Plan - Follow Up Plan Condition: SERIOUS Disposition: HOME/ ROUTINE Instructions: Small Bowel Obstruction (DC) Additional Instructions: follow up with your primary MD 7-10 days Referrals: Man Dockery MD [Family Provider] - Anam Bass MD [Staff Provider] -
== END 2018-02-28 15:25 | disposition home or self-care (01) | DRG 390 ==
LOC: H.ER 22:20 → H.ERHOLD 02-25 01:45 → H.MEDSURG1 02-25 05:25
PROVIDERS: ADMIT Internal Medicine; ATTEND Internal Medicine
DX: K56.7 Ileus, unspecified (principal); K59.00 Constipation, unspecified; R01.1 Cardiac murmur, unspecified; E87.6 Hypokalemia